=== PATIENT | male | born 1980 | race Caucasian/White ===

== ENCOUNTER 2017-03-10 13:40 | Emergency (ER) | payer OTHER ==
[~2017-03-10] VITALS: Ht 177.8 cm; Wt 113.6 kg
[2017-03-10 13:57] VITALS: TEMP 36.7; Ht 177.8 cm; Wt 113.6 kg
--- NOTE | 2017-03-10 14:48 | EMERGENCY ROOM VISIT NOTE ---
History First contact with patient: 14:31 Chief Complaint: SWELLING TO EXTREMITY Stated Complaint: SWELLING IN L LEG, REFERRED TO R/O BLOOD CLOT History of Present Illness The patient is a 37 year old male who presents to the Emergency Room with complaints of left lower extremity pain and swelling for the past few days. Patient states 2 weeks ago that he injured his lower leg on the kickstand of his daughters bike, causing an abrasion on his skin. He states the area has become red and bruised over the past few days and more painful. He states that his tetanus is up-to-date. He denies any fevers or chills, drainage from the wound, or streaking from the wound. He also reports a history of left leg DVT about 10 years ago, states he was treated for about one year with blood thinners , he did not have a filter placed. He went to urgent care today, who sent him here for more evaluation. He denies any chest pain, shortness of breath, dizziness or syncope, palpitations, abdominal pain, back pain, nausea/vomiting, or rash. Review of Systems A complete 10 point review of systems was reviewed with the patient with pertinent positives and negatives as per history of present illness. All else were negative. Past Medical/Surgical History LLE DVT 10 years ago Social History Smoking Status: Never Smoker Alcohol Use: occasionally Marital Status: Housing Status: lives with family Occupation Status: employed Current/Historical Medications Scheduled Cephalexin Monohydrate (Keflex), 500 MG PO QID Allergies NKDA Physical Exam Vital Signs Date Time Temp Pulse Resp B/P (MAP) Pulse Ox O2 Delivery O2 Flow Rate FiO2 03/10/17 17:49 78 18 128/88 98 03/10/17 16:01 73 18 111/83 95 Room Air 03/10/17 13:57 36.7 78 18 138/89 95 Room Air Physical Exam CONSTITUTIONAL: No acute distress. Well appearing and well nourished. Alert and oriented X 4 with normal affect. HEENT: Normocephalic, atraumatic. Pupils equal, round and reactive to light, EOMI. TMs normal. Pharynx normal. NECK: Supple, full active range of motion without discomfort. RESPIRATORY: Clear to auscultation bilaterally with no wheezing, crackles, rhonchi or stridor. Equal expansion bilaterally. CARDIOVASCULAR: Regular rate and rhythm with no murmurs, rubs or gallops. Normal peripheral perfusion. No edema. GASTROINTESTINAL: Soft, nontender, nondistended. Bowel sounds present in all quadrants. MUSCULOSKELETAL: Full range of motion of all joints without discomfort. There is a small abrasion noted to the medial, and distal left calf, scabbed over with some surrounding erythema, no drainage noted, not warm to touch, mildly tender to palpation. There is surrounding ecchymosis and swelling as well. There is generalized swelling and tenderness to the posterior calf extending up to the knee. INTEGUMENTARY: No rash or other significant dermatologic conditions noted. NEUROLOGIC: Cranial nerves II-XII grossly intact. No focal neurologic deficits noted. Medical Decision & Procedures ER Provider Diagnostic Interpretation: LEFT TIBIA/FIBULA 2 VIEWS ROUTINE CLINICAL HISTORY: injury, medial left distal calf, eval cellulitis, retained FB trauma. Pain. COMPARISON: None. DISCUSSION: The bones and joint spaces appear intact. There is no evidence of fracture, dislocation or bony disease. Mild soft tissue edema posterior aspect of the calf. No evidence for radiopaque foreign body. No abnormal bony reaction or abnormal periosteal reaction. IMPRESSION: Soft tissue edema. No evidence for radiopaque foreign body. No acute bony abnormality. ----- LEFT VENOUS DOPP LOWER EXT UNILAT CLINICAL HISTORY: EVALUATE FOR DVT, left leg pain. Edema. TECHNIQUE: Ultrasound COMPARISON STUDY: None FINDINGS: Thrombus is identified within the left saphenous vein. Deep venous structures are intact. Compressibility and augmentation characteristics are unremarkable. IMPRESSION: 1. Superficial thrombophlebitis of the left saphenous vein. 2. No evidence for deep venous thrombosis. Laboratory Results 03/10/17 14:50 Red Blood Count 5.41, Mean Corpuscular Volume 86.5, Mean Corpuscular Hemoglobin 29.9, Mean Corpuscular Hemoglobin Concent 34.6, Mean Platelet Volume 11.1, Neutrophils (%) (Auto) 53.3, Lymphocytes (%) (Auto) 34.9, Monocytes (%) (Auto) 8.5, Eosinophils (%) (Auto) 2.6, Basophils (%) (Auto) 0.5, Neutrophils # (Auto) 3.02, Lymphocytes # (Auto) 1.98, Monocytes # (Auto) 0.48, Eosinophils # (Auto) 0.15, Basophils # (Auto) 0.03 03/10/17 14:50 Test 9/10/17 14:50 White Blood Count 5.67 K/uL (4.8-10.8) Red Blood Count 5.41 M/uL (4.7-6.1) Hemoglobin 16.2 g/dL (14.0-18.0) Hematocrit 46.8 % (42-52) Mean Corpuscular Volume 86.5 fL (80-100) Mean Corpuscular Hemoglobin 29.9 pg (25-34) Mean Corpuscular Hemoglobin Concent 34.6 g/dl (32-36) Platelet Count 223 K/uL (130-400) Mean Platelet Volume 11.1 fL (7.4-10.4) Neutrophils (%) (Auto) 53.3 % Lymphocytes (%) (Auto) 34.9 % Monocytes (%) (Auto) 8.5 % Eosinophils (%) (Auto) 2.6 % Basophils (%) (Auto) 0.5 % Neutrophils # (Auto) 3.02 K/uL (1.4-6.5) Lymphocytes # (Auto) 1.98 K/uL (1.2-3.4) Monocytes # (Auto) 0.48 K/uL (0.11-0.59) Eosinophils # (Auto) 0.15 K/uL (0-0.5) Basophils # (Auto) 0.03 K/uL (0-0.2) RDW Standard Deviation 40.9 fL (36.4-46.3) RDW Coefficient of Variation 12.9 % (11.5-14.5) Immature Granulocyte % (Auto) 0.2 % Immature Granulocyte # (Auto) 0.01 K/uL (0.00-0.02) Prothrombin Time 10.7 SECONDS (9.0-12.0) Prothromb Time International Ratio 1.0 (0.9-1.1) Activated Partial Thromboplast Time 28.2 SECONDS (21.0-31.0) Partial Thromboplastin Ratio 1.1 Anion Gap 9.0 mmol/L (3-11) Est Creatinine Clear Calc Drug Dose 105.4 ml/min Estimated GFR () 88.4 Estimated GFR (Non- 76.3 BUN/Creatinine Ratio 9.8 (10-20) Calcium Level 8.9 mg/dl (8.5-10.1) Total Bilirubin 0.5 mg/dl (0.2-1) Aspartate Amino Transf (AST/SGOT) 25 U/L (15-37) Alanine Aminotransferase (ALT/SGPT) 41 U/L (12-78) Alkaline Phosphatase 73 U/L (45-117) Total Protein 7.5 gm/dl (6.4-8.2) Albumin 4.2 gm/dl (3.4-5.0) Globulin 3.3 gm/dl (2.5-4.0) Albumin/Globulin Ratio 1.3 (0.9-2) Medical Decision CC: Patient presenting with complaint of left leg pain and swelling Interpretation of Labs: No leukocytosis, no anemia, no significant electrolyte abnormalities, normal renal function, normal liver enzymes, coagulation factors within normal limits. Differential Diagnosis: Includes, but not limited to DVT, cellulitis, abrasion, contusion, fracture, sprain, among others. Medication Reconciliation: I attest that I have personally reviewed the patient' s current medication list. Vital signs review: I reviewed the patient's vital signs and interpret them as follows: T: Afebrile; BP: Hypertensive; HR: Within normal limits; RR: Within normal limits; Pulse Ox: Within normal limits on room air. Summary: Patient was evaluated at bedside, history of physical exam performed. Patient is alert and in no acute distress, resting calmly in the stretcher. There is abrasion to the medial distal calf with small area of surrounding erythema, larger area of ecchymosis and swelling, with generalized swelling and tenderness to the entire calf. No drainage, significant tenderness, or warmth of the erythematous area. Orders were placed at bedside for basic labs, x-ray of tib-fib to evaluate for foreign body and cellulitis, ultrasound duplex of the left lower extremity to evaluate for DVT. The patient declined any medication for pain. Patient discussed with Dr. Gamboa, who agrees with my assessment and plan. Labs reviewed as above, no acute abnormalities. X-ray reviewed, show soft tissue edema in the area of injury, no bony abnormalities, no foreign body. Duplex study reviewed, no evidence of a DVT, but does show superficial thrombophlebitis of the saphenous vein. I discussed this with Dr. Gamboa, he agrees with my plan for conservative management with NSAIDs, elevation, compression stockings, heat therapy, and close monitoring with his PCP. Patient reassessed multiple times throughout ED stay, patient remains well appearing with no acute complaints. The patient was updated on all results and plan for discharge home. He was instructed on management, and encouraged to follow closely with his PCP. He was also advised that he may require a repeat ultrasound if his symptoms do not improve. Patient verbalized understanding of instructions and plan. Patient was discharged home in stable condition and ambulatory. Impression Primary Impression: Superficial thrombophlebitis Departure Information Dispostion Home / Self-Care Condition GOOD Referrals Srikanth Singleton M.D. (PCP) Patient Instructions ED Phlebitis Superficial, My [facility] Additional Instructions Stay off of the leg as much as possible and keep elevated. Apply heat to the swollen sore area frequently over the next several days. Ibuprofen 600 mg every 6 hours for pain. Where a compression stocking on the leg to help improve swelling and discomfort. Follow up with your own doctor for recheck of the leg in the next few days. Return to the Emergency Department for worsening symptoms, including severe worsening pain, increased swelling, redness, pus drainage from your wound, fevers or chills, chest pain, shortness of breath, dizziness or passing out. Problem Qualifiers Primary Impression: Superficial thrombophlebitis Superficial thrombophlebitis-Involved body area: lower extremity Laterality: left Qualified Codes: I80.02 - Phlebitis and thrombophlebitis of superficial vessels of left lower extremity
[2017-03-10 15:00] LABS: BASO % 0.5 %; BASO ABS # 0.03 K/uL (0-0.2); COMPLETE YES; EOS % 2.6 %; HEMATOCRIT 46.8 % (42-52); IG% 0.2 %; LYMPH % 34.9 %; LYMPH ABS # 1.98 K/uL (1.2-3.4); MEAN CELL VOLUME 86.5 fL (80-100); MEAN CORPUSCULAR HEMOGLOBIN 29.9 pg (25-34); MEAN CORPUSCULAR HGB CONC 34.6 g/dl (32-36); MEAN PLATELET VOLUME 11.1 fL (7.4-10.4); MONO % 8.5 %; NEUT % 53.3 %; PLATELET COUNT 223 K/uL (130-400); RED BLOOD COUNT 5.41 M/uL (4.7-6.1); WHITE BLOOD COUNT 5.67 K/uL (4.8-10.8)
[2017-03-10 15:11] LABS: PARTIAL THROMBOPLASTIN RATIO 1.1; PROTHROMBIN TIME (PATIENT) 10.7 SECONDS (9.0-12.0)
--- NOTE | 2017-03-10 15:19 | DIAGNOSTIC IMAGING REPORT ---
LEFT TIBIA/FIBULA 2 VIEWS ROUTINE CLINICAL HISTORY: injury, medial left distal calf, eval cellulitis, retained FB trauma. Pain. COMPARISON: None. DISCUSSION: The bones and joint spaces appear intact. There is no evidence of fracture, dislocation or bony disease. Mild soft tissue edema posterior aspect of the calf. No evidence for radiopaque foreign body. No abnormal bony reaction or abnormal periosteal reaction. IMPRESSION: Soft tissue edema. No evidence for radiopaque foreign body. No acute bony abnormality. The above report was generated using voice recognition software. It may contain grammatical, syntax or spelling errors. Electronically signed by: Chente Cordova M.D. 03/10/2017 3:18 PM Dictated Date/Time: 03/10/2017 3:17 PM
[2017-03-10 15:20] LABS: BUN/CREATININE RATIO 9.8 (10-20); CALCIUM 8.9 mg/dl (8.5-10.1); CREATININE 1.2 mg/dl (0.60-1.40)
[2017-03-10 15:23] LABS: ALB/GLOB RATIO 1.3 (0.9-2)
[2017-03-10] MEDS ORDERED: CEPH500C2 PO (15:59)
--- NOTE | 2017-03-10 16:02 | DIAGNOSTIC IMAGING REPORT ---
LEFT VENOUS DOPP LOWER EXT UNILAT CLINICAL HISTORY: EVALUATE FOR DVT, left leg pain. Edema. TECHNIQUE: Ultrasound COMPARISON STUDY: None FINDINGS: Thrombus is identified within the left saphenous vein. Deep venous structures are intact. Compressibility and augmentation characteristics are unremarkable. IMPRESSION: 1. Superficial thrombophlebitis of the left saphenous vein. 2. No evidence for deep venous thrombosis. The above report was generated using voice recognition software. It may contain grammatical, syntax or spelling errors. Electronically signed by: Chente Cordova M.D. 03/10/2017 4:00 PM Dictated Date/Time: 03/10/2017 3:58 PM
[2017-03-10 17:49] VITALS: BP 128/88; PULSE 78; O2SAT 98
== END 2017-03-10 17:51 | disposition home or self-care (01) ==
LOC: C.EDB 13:42 → C.EDC 17:51
DX: I80.02 Phlebitis and thrombophlebitis of superficial vessels of left lower extremity (principal)

== ENCOUNTER → 2017-03-27 | Outpatient (CLI) | payer OTHER ==
[~2017-03-27] MED LIST: CEPH500C2 PO; GADAVIST IV PRN
--- NOTE | 2017-03-27 09:15 | DIAGNOSTIC IMAGING REPORT ---
MRI OF THE BRAIN WITHOUT AND WITH IV CONTRAST CLINICAL HISTORY: R51 extreme headaches COMPARISON STUDY: No previous studies for comparison. TECHNIQUE: MRI of the brain was performed from the vertex to the skull base utilizing various T1 and T2 weighted sequences. Following the IV administration of 11.5 mL of Gadavist contrast, additional enhanced images were obtained. FINDINGS: Sagittal T1, axial diffusion, proton density and T2 weighted axial, coronal FLAIR, and pre and post axial T1-weighted images were acquired. These were supplemented with post gadolinium coronal T1 weighted images. No intra or extra-axial mass lesions are visualized. Axial diffusion-weighted images reveal no evidence of acute or subacute infarction. There is no evidence of ventricular dilatation. Proton density T2-weighted and FLAIR images reveal 2 punctate foci of increased FLAIR signal within the frontal white matter. These are of doubtful acute clinical significance. There are no abnormal flow voids. There is no evidence of pathologic enhancement. IMPRESSION: No significant abnormalities. No evidence of acute or subacute infarction. No evidence of intracranial mass. No evidence of hydrocephalus. Electronically signed by: Alcides Gutierrez M.D. 03/27/2017 9:13 AM Dictated Date/Time: 03/27/2017 9:11 AM
== END | disposition home or self-care (01) ==
LOC: C.MRI 08:14
PROVIDERS: ATTEND Family Medicine
DX: R51 Headache (principal)

== ENCOUNTER → 2017-08-13 | Outpatient (CLI) | payer OTHER ==
[~2017-08-13] MED LIST changes: -GADAVIST IV PRN
[2017-08-13 14:10] LABS: BLOOD UREA NITROGEN 15 mg/dl (7-18); CALCIUM 9.4 mg/dl (8.5-10.1); CARBON DIOXIDE 25 mmol/L (21-32); CREATININE 1.28 mg/dl (0.60-1.40); GLUCOSE,FASTING 102 mg/dl (70-99); SODIUM 138 mmol/L (136-145)
[2017-08-13 14:14] LABS: CHOLESTEROL 240 mg/dl (0-200); LDL CHOLESTEROL CALCULATED 167 mg/dl
== END | disposition home or self-care (01) ==
LOC: C.LABPBG 07:39
PROVIDERS: ATTEND Physician Assistant
DX: Z00.00 Encounter for general adult medical examination without abnormal findings (principal)

== ENCOUNTER 2017-09-17 14:27 | Emergency (ER) | payer OTHER ==
[~2017-09-17] VITALS: Ht 180.3 cm; Wt 114.0 kg
[2017-09-17 14:31] VITALS: TEMP 36.5; Ht 180.3 cm; Wt 114.0 kg
[2017-09-17] MEDS ORDERED: ATOR-22 PO (14:47)
[2017-09-17] MEDS ORDERED: LISI-461 PO (14:47)
--- NOTE | 2017-09-17 15:17 | DIAGNOSTIC IMAGING REPORT ---
CHEST ONE VIEW PORTABLE CLINICAL HISTORY: Atypical chest pain. Anxiety, lightheadedness. COMPARISON STUDY: November 2007 FINDINGS: 8 mm right suprahilar rounded density likely represents a vascular summation. The heart remains normal in size. There is no failure. There is no focal pulmonary consolidation. There are no pleural effusions.[ IMPRESSION: Right suprahilar density, likely representing a summation. No evidence of focal pulmonary consolidation Electronically signed by: Alcides Gutierrez M.D. 09/17/2017 3:16 PM Dictated Date/Time: 09/17/2017 3:15 PM
[2017-09-17 15:22] LABS: BASO % 0.3 %; BASO ABS # 0.02 K/uL (0-0.2); EOS % 1.3 %; EOS ABS # 0.09 K/uL (0-0.5); HEMATOCRIT 44.8 % (42-52); HEMOGLOBIN 15.8 g/dL (14.0-18.0); IG# 0.01 K/uL (0.00-0.02); LYMPH % 25.9 %; LYMPH ABS # 1.84 K/uL (1.2-3.4); MEAN CELL VOLUME 84.8 fL (80-100); MEAN CORPUSCULAR HEMOGLOBIN 29.9 pg (25-34); MEAN CORPUSCULAR HGB CONC 35.3 g/dl (32-36); MEAN PLATELET VOLUME 10.9 fL (7.4-10.4); MONO % 7.9 %; MONO ABS # 0.56 K/uL (0.11-0.59); NEUT % 64.5 %; NEUT ABS # 4.59 K/uL (1.4-6.5); PLATELET COUNT 214 K/uL (130-400); RED CELL DISTRIBUTION WIDTH CV 12.8 % (11.5-14.5); RED CELL DISTRIBUTION WIDTH SD 39.3 fL (36.4-46.3); WHITE BLOOD COUNT 7.11 K/uL (4.8-10.8)
--- NOTE | 2017-09-17 15:23 | DIAGNOSTIC IMAGING REPORT ---
R ELBOW MIN 3 VIEWS ROUTINE HISTORY: 37 years-old Male r elbow pain acute right-sided elbow pain COMPARISON: None available TECHNIQUE: 3 views of the right elbow FINDINGS: Intravenous catheter is noted within the antecubital fossa. No acute fracture, dislocation, significant degenerative changes, large joint effusion or opaque foreign body. Bone mineralization is within normal limits. Mild soft tissue prominence about the elbow. IMPRESSION: No acute fracture. The above report was generated using voice recognition software. It may contain grammatical, syntax or spelling errors. Electronically signed by: Ryan Juarez M.D. 09/17/2017 3:22 PM Dictated Date/Time: 09/17/2017 3:21 PM
[2017-09-17 15:39] LABS: BLOOD UREA NITROGEN 17 mg/dl (7-18); CALCIUM 9.1 mg/dl (8.5-10.1); CARBON DIOXIDE 25 mmol/L (21-32); CREATININE 1.22 mg/dl (0.60-1.40); GLUCOSE 116 mg/dl (70-99); POTASSIUM 3.7 mmol/L (3.5-5.1); SODIUM 139 mmol/L (136-145)
[2017-09-17 15:44] LABS: CKMB 2.6 ng/ml (0.5-3.6)
[2017-09-17 17:40] VITALS: BP 129/75; PULSE 73; O2SAT 95
--- NOTE | 2017-09-17 19:32 | EMERGENCY ROOM VISIT NOTE ---
History Report prepared by Erasto: Nadine Puri Under the Supervision of: Dr. Primo Dobbins D.O. First contact with patient: 14:33 Chief Complaint: ANXIETY Stated Complaint: ANXIETY, CHEST PAIN, LIGHT HEADED History of Present Illness The patient is a 37 year old male who presents to the Emergency Room with complaints of constant left-sided chest pain beginning last night. The patient has a history of anxiety. He states that last night he was feeling very anxious and felt like he was going to pass out. His heart was pounding and he felt short of breath. He drank a glass of water and then laid down. While he was laying down, around 9pm, he started to feel shooting, stabbing pain in his left shoulder and down into the left side of his chest. He reports having tingling in his fingers and toes while he was experiencing symptoms. He felt his heart racing at this time. He fell asleep and woke up this morning feeling exhausted and "sore" in his left shoulder radiating into his chest. He denies any modifying factors. The patient called his PCP this morning and was advised to come to the ED for further evaluation. Pt denies headache, change in vision, fevers, nausea, vomiting, diarrhea, pain with urination, and SI or HI. He denies any personal history of heart disease. Patient denies swelling of calves , recent trips, history of immobilization or recent surgery, hemoptysis, history of malignancy, and history of smoking. He does report a history of a previous DVT occurring after surgery. He has also had numerous superficial clots. He does not currently take any blood thinners. The patient also reports that he has had right elbow pain worsened with movement every day for the past few months. Source of History: patient Onset: last night Position: chest Quality: stabbing, other (shooting) Timing: constant Modifying Factors (Worsening): other (anxiety) Associated Symptoms: + SOB, No fevers, No headache, No nausea, No vomiting, No diarrhea, No urinary symptoms Note: Pt notes tingling in fingers and toes. Pt has right elbow pain. Pt denies SI or HI. Review of Systems See HPI for pertinent positives & negatives. A total of 10 systems reviewed and were otherwise negative. Past Medical & Surgical Medical Problems: (1) Anxiety (2) DVT (deep venous thrombosis) (3) Femur fracture (4) Hyperlipidemia (5) Hypertension (6) Leg pain, right (7) Superficial thrombophlebitis Family History No pertinent history stated. Social History Smoking Status: Never Smoker Alcohol Use: occasionally Marital Status: Housing Status: lives with family Occupation Status: employed Current/Historical Medications Scheduled Atorvastatin (Lipitor), 20 MG PO DAILY Lisinopril (Lisinopril), 10 MG PO DAILY Allergies Coded Allergies: No Known Allergies (Unverified , 09/17/17) Physical Exam Vital Signs Date Time Temp Pulse Resp B/P (MAP) Pulse Ox O2 Delivery O2 Flow Rate FiO2 09/17/17 17:40 73 18 129/75 95 09/17/17 17:18 73 18 129/75 95 Room Air 09/17/17 15:35 85 09/17/17 15:33 83 18 123/77 93 Room Air 09/17/17 14:31 36.5 88 18 142/82 95 Room Air Physical Exam GENERAL: Sitting up in bed, alert, well appearing, well nourished, no distress, non-toxic EYE EXAM: normal conjunctiva. OROPHARYNX: no exudate, no erythema, lips, buccal mucosa, and tongue normal and mucous membranes are moist NECK: supple, no nuchal rigidity, no adenopathy, non-tender LUNGS: Clear to auscultation. Normal chest wall mechanics HEART: no murmurs, S1 normal and S2 normal CHEST: Reproducible anterior chest wall pain over left humeral head tracking to the left anterior chest. ABDOMEN: abdomen soft, non-tender, normo-active bowel sounds, no masses, no rebound or guarding. BACK: Back is symmetrical on inspection and there is no deformity, no midline tenderness, no CVA tenderness. SKIN: no rashes and no bruising UPPER EXTREMITIES: upper extremities are grossly normal. Radial pulses equal bilaterally. LOWER EXTREMITIES: No pitting edema. Calves equal bilaterally. NEURO EXAM: Normal sensorium, cranial nerves II-XII grossly intact, normal speech, no gross weakness of arms, no gross weakness of legs. Medical Decision & Procedures ER Provider Diagnostic Interpretation: Radiology results as stated below per my review and the radiologist's interpretation: R ELBOW MIN 3 VIEWS ROUTINE HISTORY: 37 years-old Male r elbow pain acute right-sided elbow pain COMPARISON: None available TECHNIQUE: 3 views of the right elbow FINDINGS: Intravenous catheter is noted within the antecubital fossa. No acute fracture, dislocation, significant degenerative changes, large joint effusion or opaque foreign body. Bone mineralization is within normal limits. Mild soft tissue prominence about the elbow. IMPRESSION: No acute fracture. The above report was generated using voice recognition software. It may contain grammatical, syntax or spelling errors. Electronically signed by: Ryan Juarez M.D. 09/17/2017 3:22 PM Dictated Date/Time: 09/17/2017 3:21 PM CHEST ONE VIEW PORTABLE CLINICAL HISTORY: Atypical chest pain. Anxiety, lightheadedness. COMPARISON STUDY: November 2007 FINDINGS: 8 mm right suprahilar rounded density likely represents a vascular summation. The heart remains normal in size. There is no failure. There is no focal pulmonary consolidation. There are no pleural effusions.[ IMPRESSION: Right suprahilar density, likely representing a summation. No evidence of focal pulmonary consolidation Electronically signed by: Alcides Gutierrez M.D. 09/17/2017 3:16 PM Dictated Date/Time: 09/17/2017 3:15 PM Laboratory Results 09/17/17 15:05 Red Blood Count 5.28, Mean Corpuscular Volume 84.8, Mean Corpuscular Hemoglobin 29.9, Mean Corpuscular Hemoglobin Concent 35.3, Mean Platelet Volume 10.9, Neutrophils (%) (Auto) 64.5, Lymphocytes (%) (Auto) 25.9, Monocytes (%) (Auto) 7.9, Eosinophils (%) (Auto) 1.3, Basophils (%) (Auto) 0.3, Neutrophils # (Auto) 4.59, Lymphocytes # (Auto) 1.84, Monocytes # (Auto) 0.56, Eosinophils # (Auto) 0.09, Basophils # (Auto) 0.02 09/17/17 15:05 Test 09/17/17 15:05 White Blood Count 7.11 K/uL (4.8-10.8) Red Blood Count 5.28 M/uL (4.7-6.1) Hemoglobin 15.8 g/dL (14.0-18.0) Hematocrit 44.8 % (42-52) Mean Corpuscular Volume 84.8 fL (80-100) Mean Corpuscular Hemoglobin 29.9 pg (25-34) Mean Corpuscular Hemoglobin Concent 35.3 g/dl (32-36) Platelet Count 214 K/uL (130-400) Mean Platelet Volume 10.9 fL (7.4-10.4) Neutrophils (%) (Auto) 64.5 % Lymphocytes (%) (Auto) 25.9 % Monocytes (%) (Auto) 7.9 % Eosinophils (%) (Auto) 1.3 % Basophils (%) (Auto) 0.3 % Neutrophils # (Auto) 4.59 K/uL (1.4-6.5) Lymphocytes # (Auto) 1.84 K/uL (1.2-3.4) Monocytes # (Auto) 0.56 K/uL (0.11-0.59) Eosinophils # (Auto) 0.09 K/uL (0-0.5) Basophils # (Auto) 0.02 K/uL (0-0.2) RDW Standard Deviation 39.3 fL (36.4-46.3) RDW Coefficient of Variation 12.8 % (11.5-14.5) Immature Granulocyte % (Auto) 0.1 % Immature Granulocyte # (Auto) 0.01 K/uL (0.00-0.02) D-Dimer < 190 ug/L FEU (0-500) Anion Gap 9.0 mmol/L (3-11) Est Creatinine Clear Calc Drug Dose 105.4 ml/min Estimated GFR () 86.6 Estimated GFR (Non- 74.7 BUN/Creatinine Ratio 13.8 (10-20) Calcium Level 9.1 mg/dl (8.5-10.1) Total Creatine Kinase 228 U/L (39-308) Creatine Kinase MB 2.6 ng/ml (0.5-3.6) Creatine Kinase MB Ratio 1.1 (0-3.0) Troponin I < 0.015 ng/ml (0-0.045) Laboratory results per my review. ECG Per My Interpretation Indication: chest pain Rate (beats per minute): 90 Rhythm: normal sinus Findings: Q waves (Septal), no ectopy, other (normal intervals) Comparison ECG Date: no prior available ED Course ED COURSE: Vital signs were reviewed and showed hypertensive. The patients medical record was reviewed The above diagnostic studies were performed and reviewed. ED treatments and interventions as stated above. 1433: The patient was evaluated in room A5. A complete history and physical examination was performed. 1726: Upon reevaluation, the patient is feeling better and resting comfortably. I discussed my findings with the patient and he understands and agrees with the treatment plan. Based on the patients age, coexisting illnesses, exam and lab findings the decision to treat as an outpatient was made. The patient remained stable while under my care. The patient appeared well at the time of discharge. Medical Decision Differential diagnoses includes but is not limited to acute coronary syndrome, myocardial infarction, pericarditis, pulmonary embolus, aortic dissection, pneumonia, pneumothorax, musculoskeletal, shingles, esophageal. Patient is an 37-year-old male who presents to the ER with left shoulder pain associated with paresthesias in the upper extremity and lower extremity per he also notes that he felt his heart racing and felt like he was going to pass out. Today he just feels short sore in that left shoulder radiating into his left upper chest. He does have reproducible pain on exam. CBC along with BMP and troponin was negative. D-dimer was negative. Chest x-ray and elbow x-ray are negative as well. Based on symptoms I do believe that this is most consistent with anxiety and muscle skeletal pain as the left shoulder/chest pain is completely reproducible and he had bilateral paresthesias when this was occurring associated with his heart racing. Patient was updated at bedside discharged follow-up with PCP in the next 24 hours as I explained to him the limits of a cardiac workup in the ER. Discussed with Pt concerning signs and symptoms to watch out for. Pt was instructed to follow up with their PCP and discussed with the patient their option to return to the ED at anytime for persistent or worsening symptoms. The appropriate anticipatory guidance and out- patient management, including indications for return to the emergency department , were explained at length to the patient and understood. Medication Reconcilliation Current Medication List: was personally reviewed by me Blood Pressure Screening Patient's blood pressure: Elevated blood pressure Blood pressure disposition: Elevated BP felt to be situational Impression Primary Impression: Chest pain Scribe Attestation The scribe's documentation has been prepared under my direction and personally reviewed by me in its entirety. I confirm that the note above accurately reflects all work, treatment, procedures, and medical decision making performed by me. Departure Information Dispostion Home / Self-Care Referrals No Doctor, Assigned (PCP) Forms HOME CARE DOCUMENTATION FORM, IMPORTANT VISIT INFORMATION Patient Instructions Chest Pain - [facility], [facility] Additional Instructions Please follow up with your primary care doctor with in the next 24 hours. Any worsening of your symptoms, please return to the ED immediately. This includes any fevers greater than 100.4, worsening pain, chest pain, shortness breath, persistent nausea, vomiting, unable to eat or drink, or any other concerning signs or symptoms from your standpoint. Problem Qualifiers Primary Impression: Chest pain Chest pain type: unspecified Qualified Codes: R07.9 - Chest pain, unspecified
== END 2017-09-17 17:40 | disposition home or self-care (01) ==
LOC: C.EDB 14:30 → C.EDA 17:40
DX: R07.9 Chest pain, unspecified (principal); F41.9 Anxiety disorder, unspecified; E78.5 Hyperlipidemia, unspecified; I10 Essential (primary) hypertension